=== PATIENT | female | born 1940 | race Caucasian/White ===

== ENCOUNTER → 2024-06-06 10:24 | Outpatient (REF) | payer OTHER, SELFPAY | LOC: WDC 10:24 | PROVIDERS: ATTENDING PHYSICIAN Internal Medicine | DX: Z12.31 Encounter for screening mammogram for malignant neoplasm of breast (principal); Z78.0 Asymptomatic menopausal state | CPT/HCPCS: 77063; 77067; 77080 ==

== ENCOUNTER → 2025-02-20 10:24 | Outpatient (REF) | payer OTHER, SELFPAY | LOC: RAD 10:24 | PROVIDERS: ATTENDING PHYSICIAN Internal Medicine | DX: M25.552 Pain in left hip (principal); M54.32 Sciatica, left side | CPT/HCPCS: 72100; 73502 ==

== ENCOUNTER → 2025-04-26 11:29 | Outpatient (REF) | payer OTHER, SELFPAY | LOC: RAD 11:29 | PROVIDERS: ATTENDING PHYSICIAN Dermatology; FAMILY PHYSICIAN Internal Medicine | DX: M96.841 Postprocedural hematoma of a musculoskeletal structure following other procedure (principal) | CPT/HCPCS: 76882 ==

== ENCOUNTER → 2025-06-10 11:01 | Outpatient (REF) | payer OTHER, SELFPAY | LOC: RAD 11:01 | PROVIDERS: ATTENDING PHYSICIAN Surgery Vascular Surgery; FAMILY PHYSICIAN Internal Medicine | DX: Z12.31 Encounter for screening mammogram for malignant neoplasm of breast (principal); T81.89XA Other complications of procedures, not elsewhere classified, initial encounter | CPT/HCPCS: 77063; 77067; 93922; 93925; 93971 ==

== ENCOUNTER 2025-08-14 05:46 | Day surgery (SDC) | payer OTHER, SELFPAY ==
--- NOTE | 2025-07-26 15:44 | CM ---
Demographics: confirmed
Living situation: Lives at the [place] with who cannot drive, patient has children to support.
Support Person Post Operatively: So,
History of
VN: No
SNF: No
Outpatient: Does not have a ride to outpatient, will need extended home care.
Has patient purchased required equipment: plans to look at [facility] and get walker.
PCP: Ranjana
Pharmacy: [facility]
Post Operative Discharge Plan: [facility], patient will not have rides to outpatient PT. Will need extended home care.
--- NOTE | 2025-07-29 11:21 | VNURNOTE ---
Patient is scheduled for an elective L KM on 08/14 -she is a same day patient with Dr Aragon. Spoke with patient prior to surgery. Introduced role of [facility] Liaison. Patient reports that she lives with her spouse in an apartment. Her spouse does
not drive.
She has a raised toilet seat, cane and rolling walker and hip kit.
PCP is Dr Isabella Chilel
Discussed [facility] joint protocol and post surgical plans.
Reviewed that she will have VN services for an extended period per Ortho. Patient does not have rides to outpt PT- 'the [employer] van is too narrow to get on.'
Patient is in agreement with plan and states that her spouse will be home with her. Her sons will provide transportation to/from the hospital for surgery. Advised to bring RW with her day of surgery. [facility] contact number provided. Referral
accepted in [facility].
Plan: PM [facility] per [facility] joint protocol 08/14 then home PT with [facility].
[2025-08-02 13:51] VITALS: BMI 23.4
[2025-08-02 14:20] LABS: Hematocrit 38.6 % (37.0-47.0); Hemoglobin 13.1 g/dL (12.0-16.0); Mean Corp Hgb Conc. 33.9 g/dL (33.0-37.0); Mean Corpuscular Volume 92.3 fL (81.0-99.0); Platelet Count 203 10^3/uL (130-400); Red Cell Dist. Width 12.1 % (11.5-14.5)
[2025-08-02 14:39] LABS: ALT (SGPT) 18 U/L (0-35); AST (SGOT) 23 U/L (14-36); Albumin 4.4 g/dl (3.5-5.0); Alkaline Phosphatase 71 U/L (38-126); Blood Urea Nitrogen 12 mg/dl (7-17); Calcium 9.0 mg/dl (8.4-10.2); Carbon Dioxide 28 mmol/L (22-30); Chloride 98 mmol/L (98-107); Estimated Creatinine Clearance 57 ml/min; Glucose 88 mg/dl (70-99); Potassium 3.9 mmol/L (3.5-5.1); Sodium 133 mmol/L (135-145); Total Protein 6.6 g/dl (6.3-8.2); eGFR > 60.00
[2025-08-02 18:28] VITALS: BMI 23.4
[2025-08-03 10:32] LABS: Glycohemoglobin (HgbA1c) 5.2 % (4.0-5.6)
[2025-08-14] VITALS (10 sets, daily range): BP systolic 128–178; BP diastolic 77–96; BMI 23.4
[2025-08-14] MEDS: TYLENOL 650 MG PO (06:37)
[2025-08-14] MEDS: CELEBREX 200 MG PO (06:37)
[2025-08-14] MEDS: NORMOSOL-R/PLASMALYTE-A 1000 IV ×2 (06:38→10:53)
[2025-08-14] MEDS: ANCEF 5 IV (10:53)
[2025-08-14] MEDS: ULTRAM 50 MG PO (11:19)
== END 2025-08-14 11:40 | disposition home health service (06) ==
LOC: SDS 05:46
PROVIDERS: ATTENDING PHYSICIAN Orthopaedic Surgery; FAMILY PHYSICIAN Internal Medicine
DX: M16.12 Unilateral primary osteoarthritis, left hip (principal)
CPT/HCPCS: 27130; 36415; 73502; 80053; 83036; 85027; 87070; 93005; 97163; C1776